=== PATIENT | male | born 1950 | race African-American/Black ===

== ENCOUNTER 2018-11-14 11:10 | Day surgery (SDC) | payer BC ==
[2018-11-11 12:23] VITALS: BMI 24.4
--- NOTE | 2018-11-14 07:39 | OP ---
Operative Note - Note: Operative Date: 11/14/18 Pre-Operative Diagnosis: Left medial meniscus tear Operation: Left knee arthroscopy with partial medial meniscectomy Post-Operative Diagnosis: Same as Pre-op Surgeon: Antonio Todd Electromyographic Technician: Elizabeth Quintanilla Anesthesia: General Operative Report Dictated: Yes
[2018-11-14] MEDS ORDERED: EPINEPHrine 1:1,000 1 MG/1 ML - 30ML VIAL (INJECTION) ONE (14:43)
[2018-11-14] MEDS ORDERED: BUPIVACAINE HCL 0.25% 125 MG/50 ML VIAL ONE (14:43)
[2018-11-14] MEDS ORDERED: MIDAZOLAM HCL 2 MG/2 ML SINGLE DOSE VIAL ONE (15:04)
[2018-11-14] MEDS ORDERED: PROPOFOL 20 ML ONE (15:04)
[2018-11-14 16:42] VITALS: TEMP 98.2
--- NOTE | 2018-11-14 16:44 | OP ---
DATE OF OPERATION: 11/14/2018 PREOPERATIVE DIAGNOSIS: Left knee medial meniscal tear. 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 PROCEDURE: Left knee arthroscopy with partial medial meniscectomy, microfracture of medial femoral condyle as well as trochlea. SURGEON: Cyrus Carrizales MD [employer] OPERATOR: RODY Benz ANESTHESIA: General. POSTOPERATIVE CONDITION: Stable. COMPLICATIONS: None. INDICATIONS: This is a pleasant gentleman who has been suffering from medial knee pain. He failed to improve after multiple modalities including therapy, injection, and medications. Surgical treatment was reviewed with him. Surgical risks were reviewed in detail including bleeding, infection, neurovascular injury, need for further surgery, postoperative pain, stiffness, progression of osteoarthritis. We discussed medical risks such as heart attack, stroke, DVT, PE, and . I addressed the use of perioperative antibiotic and DVT prophylaxis. I addressed all the patient's questions and concerns. He voiced understanding and elected to proceed. DESCRIPTION OF PROCEDURE: The patient was brought to the operating room where anesthesia was administered. The left lower extremity was then prepped and draped in the usual sterile fashion. A preoperative dose of antibiotics was given, and the usual timeout procedure was performed. The portal sites were now marked out on the skin and were injected subcutaneously with 0.25% Marcaine. An 11 blade was now used to establish the lateral portal. The arthroscope was passed into the knee. Examination of the patella demonstrated some moderate partial thickness chondral loss mostly in the mid-portion. Examination of the trochlea demonstrated fissuring down the mid-portion and the upper region of the trochlea. The arthroscope was now passed into the notch where the ACL and PCL were visualized to be intact. The arthroscope was now passed into the medial compartment. Here, high-grade partial thickness chondral fissuring was noted along the lateral aspect of the medial femoral condyle extending into the weightbearing surface. Medial portal was now established under spinal needle localization. The posterior horn of the medial meniscus no examined demonstrating a complex tear. Utilizing a combination of meniscal biters and radha, this was debrided down to a stable base. The arthroscope was now passed into the lateral compartment. Here, there was mild superficial chondral wear on the articular surface, and no meniscal tearing noted. The meniscus was probed and found to be stable. The arthroscope was no passed back into the medial compartment. Here, in one of the deeper fissures, a microfracture awl was then placed gnawed into the bone in order to encourage stabilization of the fragment. This was then repeated in the trochlea to stabilize a cartilage fissure there. At this point, the excess fluid was withdrawn from the knee. The portals were sutured using 3-0 nylon. Sterile dressings were placed. The patient was extubated and transferred to recovery room in stable condition. CYRUS CARRIZALES M.D. [id number]
[2018-11-14 19:02] VITALS: BP 118/78; PULSE 68
== END 2018-11-14 18:50 | disposition home or self-care (01) ==
LOC: FASU 11:10
PROVIDERS: ATTEND Orthopaedic Surgery Sports Medicine
PROC: 0SBD4ZZ Excision of Left Knee Joint, Percutaneous Endoscopic Approach (ICD-10-PCS; principal; 2018-11-14 15:33)
PROC: 0SQD4ZZ Repair Left Knee Joint, Percutaneous Endoscopic Approach (ICD-10-PCS; 2018-11-14 15:33)
DX: S83.242A Other tear of medial meniscus, current injury, left knee, initial encounter (principal); M22.42 Chondromalacia patellae, left knee; X58.XXXA Exposure to other specified factors, initial encounter; Y93.9 Activity, unspecified; Y92.9 Unspecified place or not applicable
CPT/HCPCS: 82962; 94760